=== PATIENT | female | born 1950 | race Caucasian/White ===

== ENCOUNTER → 2024-05-04 14:47 | Outpatient (REF) | payer MEDICARE, SELFPAY | LOC: PAVMRI 14:47 | PROVIDERS: ATTENDING PHYSICIAN Physical Medicine & Rehabilitation | DX: M54.32 Sciatica, left side (principal); M54.16 Radiculopathy, lumbar region | CPT/HCPCS: 72148 ==

== ENCOUNTER → 2024-09-27 14:27 | Outpatient (REF) | payer MEDICARE, SELFPAY | LOC: MRI 14:27 | PROVIDERS: ATTENDING PHYSICIAN Internal Medicine Gastroenterology; FAMILY PHYSICIAN Physician Assistant Medical | DX: K76.0 Fatty (change of) liver, not elsewhere classified (principal) | CPT/HCPCS: 74183; 76391; A9585 ==

== ENCOUNTER → 2024-10-13 12:49 | Outpatient (REF) | payer MEDICARE, SELFPAY | LOC: HWRAD 12:49 | PROVIDERS: ATTENDING PHYSICIAN Internal Medicine Critical Care Medicine; FAMILY PHYSICIAN Physician Assistant Medical | DX: J84.9 Interstitial pulmonary disease, unspecified (principal) | CPT/HCPCS: 71250 ==

== ENCOUNTER 2025-02-04 06:10 | Day surgery (SDC) | payer MEDICARE, SELFPAY ==
[2025-02-04 07:40] VITALS: BP 144/63
[2025-02-04 07:48] VITALS: BMI 42.7
[2025-02-04 08:00] VITALS: BMI 42.7
[2025-02-04 09:12] VITALS: BP 143/66
[2025-02-04 09:15] VITALS: BP 148/66
[2025-02-04 09:30] VITALS: BP 149/74
== END 2025-02-04 09:45 | disposition home or self-care (01) ==
LOC: SDS 06:10
PROVIDERS: ATTENDING PHYSICIAN Internal Medicine Gastroenterology
DX: Z12.11 Encounter for screening for malignant neoplasm of colon (principal); D12.3 Benign neoplasm of transverse colon; K64.8 Other hemorrhoids; K44.9 Diaphragmatic hernia without obstruction or gangrene; K31.89 Other diseases of stomach and duodenum; R12 Heartburn; Z86.0100 Personal history of colon polyps, unspecified
CPT/HCPCS: 45380; 43239; 88305; 88342

== ENCOUNTER → 2025-02-10 12:43 | Outpatient (REF) | payer MEDICARE, SELFPAY | LOC: HWRAD 12:43 | PROVIDERS: ATTENDING PHYSICIAN Internal Medicine Critical Care Medicine; FAMILY PHYSICIAN Physician Assistant Medical | DX: J84.9 Interstitial pulmonary disease, unspecified (principal); R93.89 Abnormal findings on diagnostic imaging of other specified body structures | CPT/HCPCS: 71250 ==